=== PATIENT | male | born 1980 | race Caucasian/White ===

== ENCOUNTER 2017-12-30 18:32 | Emergency (ER) | payer OTHER ==
[2017-12-30] MEDS ORDERED: NORVASC 5MG5 MG/TAB PO (19:13)
[2017-12-30 20:55] LABS: ALBUMIN 3.8 g/dL (3.5-5.0); BUN/CREATININE RATIO 18.9 (6.0-26.0); POTASSIUM 4.3 mmol/L (3.6-5.0); TOTAL BILIRUBIN 0.1 mg/dL (0.2-1.3)
[2017-12-30 20:57] LABS: EOS # 0.2 (0.04-0.40); EOS % 2.5 % (0.0-4.0); HEMATOCRIT 42.1 % (42.0-52.0); HEMOGLOBIN 14.4 g/dL (13.5-18.0); LYMPH# 2.5 (1.50-4.00); MEAN CELL VOLUME 81 fl (78-100); MEAN CORPUSCULAR HEMOGLOBIN 28 pg (27-31); MEAN CORPUSCULAR HGB CONC 34 g/dL (33-37); MEAN PLATELET VOLUME 9.1 fl (7.4-10.4); MONO # 0.7 (0.20-0.80); NEU # 3.8 (1.40-6.50); PLATELET COUNT 295 K/mm3 (130-400); RED BLOOD COUNT 5.17 M/mm3 (4.20-5.60); RED CELL DISTRIBUTION WIDTH 14.5 % (11.5-14.5); WHITE BLOOD COUNT 7.2 K/mm3 (4.8-10.8)
[2017-12-30] MEDS ORDERED: MIRALAX17 GM PO (21:18)
[2017-12-30 21:55] VITALS: BP 161/89
== END 2017-12-30 21:55 ==
LOC: ED 18:32
PROVIDERS: Nurse Practitioner Primary Care
DX: K59.00 Constipation, unspecified (principal); I10 Essential (primary) hypertension; F17.200 Nicotine dependence, unspecified, uncomplicated; I42.9 Cardiomyopathy, unspecified; Z86.718 Personal history of other venous thrombosis and embolism
CPT/HCPCS: Q9967